=== PATIENT | male | born 1995 | race African-American/Black ===

== ENCOUNTER 2022-11-02 09:21 | Day surgery (SDC) | payer BC, OTHER ==
[~2022-11-02 09:21] MED LIST: Pre Op ABX Message 1 EACH MISC MISCELLANE ONE
[2022-11-02] MEDS ORDERED: DEXAMETHASONE SOD PHOSPHATE 4 MG/ML 1 ML VIAL IV ONE (09:42)
[2022-11-02] MEDS ORDERED: LACTATED RINGERS 1,000 ML IV SCH (09:42)
[2022-11-02] MEDS ORDERED: ONDANSETRON 4 MG/2 ML VIAL IVP ONE (09:42)
[2022-11-02] MEDS ORDERED: HYDROmorphone 0.5 MG/0.5 ML SYRINGE IVP PRN (09:42)
[2022-11-02] MEDS ORDERED: MIDAZOLAM 2 MG/2 ML VIAL IV PRN (09:42)
[2022-11-02] MEDS ORDERED: SCOPOLAMINE 1 MG/72 HR PATCH TRANSDERM ONE (09:42)
[2022-11-02 10:03] VITALS: RESP 16
[2022-11-02] MEDS ORDERED: MIDAZOLAM 2 MG/2 ML VIAL IVP ONE (10:20)
[2022-11-02] MEDS ORDERED: fentaNYL (PF) 50 MCG/ML 2 ML AMP IVP ONE (10:21)
[2022-11-02] MEDS ORDERED: PROPOFOL 10 MG/ML 20 ML VIAL IV ONE (11:07)
[2022-11-02] MEDS ORDERED: fentaNYL (PF) 50 MCG/ML 2 ML AMP ONE (11:07)
[2022-11-02] MEDS ORDERED: LIDOCAINE 2% INJ 20 MG/ML (2 ML VIAL) ONE (11:07)
[2022-11-02] MEDS ORDERED: MIDAZOLAM 2 MG/2 ML VIAL ONE (11:07)
[2022-11-02] MEDS ORDERED: SUCCINYLCHOLINE CHLORIDE 200 MG/10 ML VIAL IV ONE (11:07)
[2022-11-02] MEDS ORDERED: SODIUM CHLORIDE 0.9% (PF) 10 ML VIAL ONE (11:07)
[2022-11-02] MEDS ORDERED: ROPIVACAINE 5 MG/ML 30 ML VIAL ONE (11:07)
[2022-11-02] MEDS ORDERED: SODIUM CHLORIDE 0.9% 50 ML with ceFAZolin 2,000 MG IV ONE ×2 (11:15)
[2022-11-02] MEDS ORDERED: ceFAZolin 1,000 MG in SODIUM CHLORIDE 0.9% 1,000 ML IRRIGATION ONE (11:21)
--- NOTE | 2022-11-02 12:10 | P.ANPRN ---
Procedure Note - Anesthesia - Nerve Block Performed Right Popliteal Single Time Out Performed: Yes (1020) Date of Procedure: 11/02/22 Procedure Start Time: Procedure Stop Time: Location of Patient: PreOp Indication: Acute Post-Operative Pain, Requested by Surgeon Specifically requested for management of pain by DrLeatha: Josue Ernst Sedation Type: Sedate with meaningful contact maintained Preparation: Sterile Prep Position: Supine Catheter: None Needle Types: Pajunk Needle Gauge: 21 Ultrasound used to visualize needle placement: Yes Ultrasound used to observe medication spread: Yes Injectate: 0.5% Ropivacaine (see comment for volume) (15cc +10cc nacl pf) Blood Aspirated: No Pain Paresthesia on Injection Noted: No Resistance on Injection: Normal Image Stored and Saved: Yes Events: Uneventful and Well Tolerated
--- NOTE | 2022-11-02 12:13 | P.ANPRN ---
Procedure Note - Anesthesia - Nerve Block Performed Right Adductor Canal Single Time Out Performed: Yes (1020) Date of Procedure: 11/02/22 Procedure Start Time: : Procedure Stop Time: Location of Patient: PreOp Indication: Acute Post-Operative Pain, Requested by Surgeon Specifically requested for management of pain by DrLeatha: Josue Ernst Sedation Type: Sedate with meaningful contact maintained Preparation: Sterile Prep Position: Supine Catheter: None Needle Types: Pajunk Needle Gauge: 21 Ultrasound used to visualize needle placement: Yes Ultrasound used to observe medication spread: Yes Injectate: 0.5% Ropivacaine (see comment for volume) (15cc +10cc nacl pf) Blood Aspirated: No Pain Paresthesia on Injection Noted: No Resistance on Injection: Normal Image Stored and Saved: Yes Events: Uneventful and Well Tolerated
--- NOTE | 2022-11-02 13:16 | P.OP ---
Date of Procedure: 11/02/22 Preoperative Diagnosis: Achilles tendon rupture right ankle Postoperative Diagnosis: Same Procedure(s) Performed: 1. Secondary repair right Achilles tendon with allograft 2. Flexor hallucis longus tendon transfer right ankle 3. Gastroc recession right leg Implants: Arthrex 8 mm x 12 mm interference screw, Arthrex 4.75 swivel lock anchor 2, Arthrex AFLEX 500 tissue allograft Anesthesia: BRENDAA Surgeon: Josue Ernst Estimated Blood Loss (ml): 2 Pathology: none sent Condition: stable Disposition: PACU Description of Procedure: Prior to the patient being brought to the operating room, anesthesia administered nerve block on the surgical extremity. Once completed, the patient was taken into the operating room. Timeout was taken to confirm correct patient identifiers, correct laterality of surgery, and correct procedure. When all staff in the room were in agreement with the timeout, the patient was induced and placed under general anesthesia. The patient was then placed in the prone position on the operating room table. Appropriate padding was placed beneath the patient's face as well as in the thoracic area. Once anesthesia was satisfied with the patient positioning, a well-padded tourniquet was placed on the thigh. Then the leg was prepped and draped in the usual manner. The leg was exsanguinated and the tourniquet inflated to 250 mmHg. Attention was directed over the posterior aspect of the leg, where the gastroc recession was performed. A linear midline incision was made distal to the gastroc muscle belly. The incision was deepened down to the subcutaneous layer careful to identify, avoid, and retract any neurovascular structures and cauterize any bleeding vessels. Blunt dissection was carried down to level the deep fascia. The fascia was incised and then bluntly dissected off the gastroc aponeurosis. A transverse incision was made through the aponeurosis from medial to lateral. Once completed the ankle was dorsiflexed and a visible gap. And the aponeurosis, indicating a full release. The wound is thoroughly irrigated. The subcutaneous layer was closed with 4-0 Vicryl. And skin closure done with 3-0 Stratafix in a running subcuticular manner. Attention was directed to the posterior leg where a linear incision was made medial to the midline. The incision was deepened down to the subcutaneous tissue careful to identify, avoid, and retract any neurovascular structures and cauterize any bleeding vessels. Blunt dissection was then continued down to the Achilles tendon. There was significant scarring due to the injury and this required soft tissue releases medially and laterally as well as deep to the tendon, to adequately release the proximal stump. The area of rupture was in the watershed area. There had been some tissue healing however the tendon was severely attenuated and there was some proximal retraction of fibers. Approximately 3 cm of tendon at the rupture site was completely transected. Once the proximal stump was mobilized, suture tape was used to make Krakw stitches in the tendon. Tension was placed on the suture to remove any creep and to stretch the gastroc recession to allow some closure of the gap in the tendon. Attention was directed to the distal posterior muscle compartment fascia just deep to the Achilles tendon. It was incised medial to the midline starting at the calcaneus and bluntly dissected until the muscle belly of the flexor hallucis longus tendon was identified. The fascia was released so that the muscle could be sutured against the Achilles tendon once it was transferred. The tendon was then followed down into the deep medial compartment and the ankle and great toe or plantar flex to allow for full exposure of the tendon. The tendon and it was carefully transected and delivered in the surgical field. A whipstitch was then placed on the transected end of the tendon. A guidewire was inserted just anterior to the Achilles insertion and advanced out the plantar aspect of the calcaneus just distal to the tuberosities. An 8.5 mm reamer was then used over the guidewire to ream a hole from dorsal to plantar to the calcaneus. The wire was left in place and then the sutures in the whipstitch were plaster the eyelet and then the guidewire pulled to the plantar surface of the heel along with the suture. Sutures were grasped and tension to bring the flexor hallucis longus tendon into the bony canal and the calcaneus. The ankle was positioned and the tendon properly tensioned. An 8 mm interference screw was then inserted the drill hole locking the tendon in place. The ankle was taken through range of motion and it indicated that there was good tension at the tendon transfer was no evidence of slippage. Once the tendon transfer was completed, small stab incisions were made on the medial lateral aspects of the Achilles insertion of the calcaneus and deepened directly down to bone. Drill holes were made for the 4.75 swivel lock anchors and then the holes were tapped. A curved tendon passer was then placed into the second incisions over the drill holes in the past the distal stump of the Achilles tendon. The suture was grasped from the lateral side first and then pulled through the distal stump of the tendon and out the stab incision for the drill hole. Same procedure was done medially. With the ankle mild equinus tension was placed on the suture to close the gap in the tendon as much as po ssible. Once adequate tension was achieved the 4.75 swivel lock anchors were inserted and the drill holes locking the suture in place. At that point Munguia's test was performed which was negative. The wound was irrigated with antibiotic saline. 0 Vicryl was used to sew the flexor hallucis longus muscle belly to the underside of the Achilles tendon along the entire length of the repair. An Arthrex AFLEX 500 tissue allograft was placed over the gap in the tendon. 4-0 Monocryl was used to secure the graft which and covered the repair site in the gap in the tendon. The wound is irrigated with antibiotic saline. Subcu closure done for Monocryl skin closure done with kenna. Bulky dry dressings applied to the right leg the tourniquet was released and capillary refill return to all digits on the right foot. The patient was placed in a well-padded, well molded plaster posterior mold/sugar tong splint. Ankle was held in slight equinus as it dried. Anesthesia was reversed and the patient taken recovery with vital signs stable.
[2022-11-02 13:21] VITALS: TEMP 97
[2022-11-02 14:13] VITALS: BP 132/77; PULSE 72
== END 2022-11-02 14:53 | disposition home or self-care (01) ==
LOC: OR 09:21
PROVIDERS: ATTEND Podiatrist
DX: S86.011A Strain of right Achilles tendon, initial encounter (principal); G89.18 Other acute postprocedural pain; Z82.49 Family history of ischemic heart disease and other diseases of the circulatory system; Z87.891 Personal history of nicotine dependence; Z86.59 Personal history of other mental and behavioral disorders; Z79.899 Other long term (current) drug therapy; X58.XXXA Exposure to other specified factors, initial encounter
CPT/HCPCS: 64447; 64445; 27654; 27691; 27687; C1713 ×3; Q4125; J2250; J0330; J1100; J2405; J0690; J3010; J2795; J2704; J2001